=== PATIENT | male | born 1950 | race Caucasian/White ===

== ENCOUNTER 2019-01-16 15:51 | Emergency (ER) | payer MEDICAID, MEDICARE ==
[~2019-01-16] VITALS: Ht 180.3 cm; Wt 104.3 kg
[2019-01-16 17:00] VITALS: BP 120/75
== END 2019-01-16 20:28 | disposition home or self-care (01) ==
LOC: EDBD 15:51 → ER 15:55
DX: L89.159 Pressure ulcer of sacral region, unspecified stage (principal); I10 Essential (primary) hypertension; F12.10 Cannabis abuse, uncomplicated; Z87.891 Personal history of nicotine dependence; Z90.89 Acquired absence of other organs
CPT/HCPCS: 74176